=== PATIENT | male | born 1990 | race Two or more races ===

== ENCOUNTER 2024-10-08 20:55 | Emergency (ER) | payer SELFPAY ==
[~2024-10-08] VITALS: Ht 182.9 cm; Wt 114.9 kg
[2024-10-08 22:05] VITALS: BP 154/92; PULSE 67; RESP 20; TEMP 97.8; O2SAT 97
[2024-10-08] MEDS ORDERED: AUG875T PO (22:20)
--- NOTE | 2024-10-08 22:24 | ED.PDOC ---
Eye-HPI HPI Comments This is a 34-year-old male presents to the ED chief complaint dental pain. Patient reports left lower molar/possible wisdom tooth impaction pain. States symptoms started proximally 2 days ago. Has not any appointment with dental as of today. States he has been using meloxicam 15 mg which he took at 6:00 p.m. today and Tylenol 1 g which he also took at 6:00 p.m. today with no relief. Patient denies fevers, chills, throat swelling, difficulty breathing or difficulty swallowing. Chief Complaint: Tooth Pain Time Seen by MD: 21:09 Reviewed Notes: Nurses Notes, Medications, Allergies Home Meds Active Scripts Amoxicillin & Pot Clavulanate (AUGMENTIN TABLET) 875 Mg Tb, 875 MG PO BID for 7 Days, #14 TAB Prov:RUBEN NIETO BOGDAN 10/08/24 Information Source: Patient Mode of Arrival: Ambulatory Past Medical History PAST MEDICAL HISTORY: Denies Surgical History: Denies all surgeries Family History Family History: Reviewed,noncontributory to illness Social History Smoker: Non-Smoker Alcohol: Denies ETOH Use Drugs: Denies Drug Use Constitutional: denies: chills, diaphoresis, fatigue, fever, malaise, sweats, weakness, others EENTM: reports: others (Dental pain); denies: blurred vision, double vision, ear bleeding, ear discharge, ear drainage, ear pain, ear ringing, eye pain, eye redness, hearing loss, mouth pain, mouth swelling, nasal discharge, nose bleeding, nose congestion, nose pain, photophobia, tearing, throat pain, throat swelling, voice changes Respiratory: denies: cough, hemoptysis, orthopnea, SOB at rest, shortness of breath, SOB with excertion, stridor, wheezing, others Cardiovascular: denies: chest pain, dizzy spells, diaphoresis, Dyspnea on exertion, edema, irregular heart beat, left arm pain, lightheadedness, palpitations, PND, syncope, others Gastrointestinal: denies: abdomen distended, abdominal pain, blood streaked bowels, constipated, diarrhea, dysphagia, difficulty swallowing, hematemesis, melena, nausea, poor appetite, poor fluid intake, rectal bleeding, rectal pain, vomiting, others Genitourinary: denies: burning, dysuria, flank pain, frequency, hematuria, incontinence, penile discharge, penile sore, pain, testicle pain, testicle swell ing, urgency, others Neurological: denies: dizziness, fainting, headache, left sided numbness, left sided weakness, numbness, paresthesia, pre-existing deficit, right sided numbness, right sided weakness, seizure, speech problems, tingling, tremors, weakness, others Musculoskeletal: denies: back pain, gout, joint pain, joint swelling, muscle pain, muscle stiffness, neck pain, others Integumetry: denies: bruises, change in color, change in hair/nails, dryness, laceration, lesions, lumps, rash, wounds, others Allergic/Immunocompromised: denies: Difficulty Healing, Frequent Infections, Hives, Itching, others Hematologic/Lymphatic: denies: anemia, blood clots, easy bleeding, easy bruising, swollen glands, others Endocrine: denies: excessive hunger, excessive sweating, excessive thirst, excessive urination, flushing, intolerance to cold, intolerance to heat, unexplained weight gain, unexplained weight loss, others Psychiatric: denies: anxiety, bipolar disorder, depression, hopeless, panic disorder, schizophrenia, sleepless, suicidal, others Physical Exam General Appearance: No Apparent Distress, Normal HEENT: Pharynx Normal, Other (Left lower jaw back molar number 38 noted decay also noted protruding wisdom tooth abscess or swelling along the jaw cervical adenopathy) Neck: Full Range of Motion, Non-Tender Respiratory: Lungs Clear, No Respiratory Distress, Normal Breath Sounds Cardiovascular: No Murmur, Normal Peripheral Pulses, Regular Rate/Rhythm Breast Exam: Deferred Gastrointestinal: Non Tender, No Pulsatile Mass, Soft Genitalia: Deferred Pelvic: Deferred Rectal: Deferred Extremities: Normal capillary refill, Normal inspection, Normal range of motion, Non-tender, No pedal edema Musculoskeletal : Apperance: Normal Neurologic: Alert, 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 Was a procedure done?: No EENT DIFF Eye: N/A Ear: N/A Nose: N/A Mouth: N/A Sore Throat: Ray's Angina, Peritonsillar Abscess X-Ray, Labs, Meds, VS Vital Signs Date Time Temp Pulse Resp B/P (MAP) Pulse Ox O2 Delivery O2 Flow Rate FiO2 10/08/24 22:05 67 20 97 Room Air 10/08/24 22:05 97.8 67 20 154/92 (112) 97 97.8 10/08/24 21:13 97.8 67 20 154/92 (112) 97 97.8 Current Medications Medications (Trade) Dose Ordered Sig/Marisa Route Start Time Stop Time Status Last Admin Oxycodone HCl 10 mg Q4HP ONCE PO 10/09/24 02:00 10/09/24 02:01 10/08/24 22:38 Benzocaine (Hurricaine [place]) 1 spr ONCE ONCE MT 10/08/24 22:30 10/08/24 22:31 DC 10/08/24 22:38 X-Ray, Labs, Meds, VS Comment Patient given oxycodone 10 mg, took g of Tylenol and meloxicam. Hurricaine spray applied patient reports relief in symptoms requesting discharge at this time. Script Augmentin twice daily x7 days. Advised to call and make appointment with dental for resolution. Take Medications as prescribed side effects discussed. ER return precautions given patient indicates understanding and agrees with discharge plan of care. Time of 1ST Reevaluation: 22:45 Reevaluation 1ST: Improved Patient Education/Counseling: Diagnosis, Treatment, Prognosis, Need For Follow Up Family Education/Counseling: Diagnosis, Treatment, Prognosis, Need For Follow Up Departure 1 Departure Time of Disposition: 22:45 Impression: Primary Impression: Pain, dental Disposition: HOME / SELF CARE / HOMELESS Condition: Stable e-Prescriptions Amoxicillin & Pot Clavulanate (AUGMENTIN TABLET) 875 Mg Tb 875 MG PO BID for 7 Days, #14 TAB Prov: RUBEN NIETO 10/08/24 Discharged With: Significant Other Critical Care Note Critical Care Time?: No Stability Stability form required: RUBEN De La O Oct 08, 2024 22:23
[2024-10-08] MEDS: BENZOCAINE (DENTAL) 20 % SPRAY 60ML MT ONE (22:38)
[2024-10-08] MEDS: oxyCODONE HCL 5MG TAB PO ONE (22:38)
== END 2024-10-08 23:01 | disposition home or self-care (01) ==
LOC: ER 20:55
DX: K08.89 Other specified disorders of teeth and supporting structures (principal)

== ENCOUNTER 2024-10-20 20:17 | Emergency (ER) | payer SELFPAY ==
[~2024-10-20] VITALS: Ht 182.9 cm; Wt 113.9 kg
--- NOTE | 2024-10-20 21:35 | ED.PDOC ---
History of present illness HPI Comments HPI: 34 year old male presents to the ED with chief complaint of hyperglycemia. Patient reports that he recently checked his BG at home, noting it to be in the 400s. Patient relays that he has been experiencing abdominal burning with associated frequent urination, nausea, and blurred vision since this morning. Patient relays that he had a previous episode of DKA back in 2019. Patient states he is only on Metformin at this time, compliant with it, but it has not helped with his blood sugar. Patient notes recent bad diet and stress. Patient denies any vomiting, diarrhea, dysuria, excess thirst, chest pain, SOB, or dizziness. History of alcohol abuse daily Initial Vitals: Temp: BP: 139/94 HR: 91 RR: 20 O2 Sat: 98% Blood Glucose: 408 in triage Medical History: DM Surgical History: Rt meniscus surgery, Appendectomy Social History: Denies any smoking, heavy ETOH use, or Marijuana Medications: Metformin Allergies: NKDA HPI: Poor Historian. REVIEW OF SYSTEMS: CONSTITUTIONAL: Denies acute: fever, diaphoresis, chills, generalized weakness. HEAD: Denies acute: headache, photophobia Eyes: Denies acute: Double vision, vision loss, eye pain, eye discharge. EARS: Denies acute: tinnitus, hearing loss, ear discharge, ear pain, THROAT: Denies acute: sore throat, swelling, difficulty swallowing , pain with swallowing, change in voice. NECK: Denies acute: neck pain, neck swelling, stiff neck. HEART: Denies acute : chest pain, palpitations, LUNGS: Denies acute: SOB, wheezing, cough, hemoptysis ABDOMEN: Denies acute: abdominal pain, Nausea, Vomiting, diarrhea, melena , hematemesis, hematochezia SKIN: Denies acute: rash, redness, lesions, itchiness. EXTREMITIES: Denies acute: calf pain, numbness, tingling, weakness, denies pain in extremity. Denies acute: Low back pain. Neuro: Denies acute: focal neurological deficit, motor or sensory focal neurological deficit, tremors, seizure like activity, confusion, dizziness, change in mental status, loss of bowel or bladder function, cauda equina like symptoms. : Denies acute: dysuria, hematuria, flank pain, increase in urinary frequency. PSYCH: Denies acute: hallucination, suicidal ideation, homicidal ideation. PHYSICAL EXAM: General: ---mild-----acute distress, awake and alert. Head: normocephalic, atraumatic. Neck: supple, trachea is midline, no swelling. Throat: Normal phonation. Eyes:, no erythema, no purulent discharge, no proptosis, no icterus. Heart: regular rate, regular rhythm, no significant murmur appreciated. Lungs: no apparent respiratory distress, Able to speak in full sentences. No wheezing, no rhonchi, no crackles. No stridors Clear to auscultation bilaterally. Abdomen: non tender to palpation, non distended, soft, no guarding, no rebound, + bowel sounds. Neuro: Awake, Alert, oriented to name, self, situation, follows commands GCS=15. Speech is normal. Skin: no petechia, no purpura, no cyanosis, non-pale, not jaundice. Lower extremities: --no - Pitting edema no deformity, no focal swelling, no calf TTP. Makes eye contact. moves all four extremities. Face: no apparent facial droop. Ambulating in the ED independently. ED COURSE: Time Seen by MD: 21:02 History of present illness: Nurses Notes, Medications, Allergies Allergies: Coded Allergies: NO KNOWN ALLERGIES (Unverified , 10/20/24) Home Meds Active Scripts Metformin Hydrochloride (Metformin Hcl) 500 Mg Tab, 1 TAB PO DAILY for 5 Days, #5 TAB 0 Refills Prov:HOWIE MERRILL DO 10/21/24 Discontinued Scripts Amoxicillin & Pot Clavulanate (AUGMENTIN TABLET) 875 Mg Tb, 875 MG PO BID for 7 Days, #14 TAB Prov:RUBEN NIETO 10/08/24 Information Source: Patient Mode of Arrival: Ambulatory Was a procedure done? Was a procedure done?: No Differential Diagnosis (DM) Differential Diagnosis: Dehydration, Diabetic Coma, DKA, Electrolyte Abnormality, Hyperglycemia, Hyperosmolar State, UTI X-Ray, Labs, Meds, VS Vital Signs Date Time Temp Pulse Resp B/P (MAP) Pulse Ox O2 Delivery O2 Flow Rate FiO2 10/21/24 00:50 98.8 80 13 126/86 (99) 95 98.8 10/21/24 00:50 80 13 95 Room Air* 0 21 10/20/24 21:15 98.9 91 20 139/94 (109) 98 98.9 Lab Test 10/21/24 00:14 10/20/24 22:19 10/20/24 22:13 10/20/24 21:19 Range/Units POC Glucose 340 H 70-106 mg/dl Troponin I High Sensitivity 8 9 </=54 ng/L Blood Gas Specimen Type Arterial Blood Gas Sample Site Right radial Blood Gas Patient Temperature 37.0 Arterial Blood Date Drawn [id number] Arterial Blood pH 7.459 H 7.350-7.450 Arterial Blood Partial Pressure CO2 31.5 L 35.0-48.0 mmHg Arterial Blood Partial Pressure O2 82.3 L 83.0-108.0 mmHg Arterial Blood HCO3 21.8 21.0-28.0 mmol/L Arterial Blood Oxygen Saturation 96.1 94.0-98.0 % Arterial Blood Base Excess -0.9 -2.0-3.0 mmol/L Arterial Blood Oxyhemoglobin 95.1 94.0-98.0 % Arterial Blood Carboxyhemoglobin 0.6 0.5-1.5 % Arterial Blood Methemoglobin 0.4 0.0-1.5 % Darius Test Yes Blood Gas Total Hemoglobin 15.60 13.5-17.5 g/dL Blood Gas Modality Room air FiO2 % 21.0 Specimen Drawn By Fito rodrigez White Blood Count 10.2 4.4-10.8 10^3/uL Red Blood Count 5.22 4.5-5.90 10^6/uL Hemoglobin 15.8 13.5-17.5 g/dL Hematocrit 46.3 41.0-53.0 % Mean Corpuscular Volume 88.7 80.0-100.0 fL Mean Corpuscular Hemoglobin 30.3 28.0-32.0 pg Mean Corpuscular Hemoglobin Concent 34.1 32.0-36.0 g/dL Red Cell Distribution Width 13.0 11.8-14.3 % Platelet Count 165 140-450 10^3/uL Mean Platelet Volume 10.9 H 6.9-10.8 fL Neutrophils (%) (Auto) 57.0 37.0-80.0 % Lymphocytes (%) (Auto) 35.2 10.0-50.0 % Monocytes (%) (Auto) 5.0 0.0-12.0 % Eosinophils (%) (Auto) 1.7 0.0-7.0 % Basophils (%) (Auto) 1.1 0.0-2.0 % Neutrophils # (Auto) 5.8 1.6-8.6 10 ^3/uL Lymphocytes # (Auto) 3.6 0.4-5.4 10 ^3/uL Monocytes # (Auto) 0.5 0-1.3 10 ^3/uL Eosinophils # (Auto) 0.2 0-0.8 10 ^3/uL Basophils # (Auto) 0.1 0-0.2 10 ^3/uL Nucleated Red Blood Cells 0.2 % Sodium Level 130 L 136-145 mmol/L Potassium Level 3.9 3.5-5.1 mmol/L Chloride Level 94 L 98-107 mmol/L Carbon Dioxide Level 26 20-31 mmol/L Anion Gap 10 5-15 Blood Urea Nitrogen 15 9-23 mg/dL Creatinine 0.97 0.700-1.30 mg/dL Glomerular Filtration Rate Calc 105 >90 mL/min BUN/Creatinine Ratio 15.5 10.0-20.0 Serum Glucose 424 *H 74-106 mg/dL Lactic Acid Level 1.5 0.4-2.0 mmol/L Calcium Level 10.3 8.7-10.4 mg/dL Magnesium Level 2.0 1.6-2.6 mg/dL Total Bilirubin 0.7 0.2-1.0 mg/dL Aspartate Amino Transferase (AST) 74 H 13-40 U/L Alanine Aminotransferase (ALT) 208 H 7-40 U/L Alkaline Phosphatase 152 H 46-116 U/L B-Type Natriuretic Peptide 0.39 0-100 pg/mL Total Protein 8.3 H 5.7-8.2 g/dL Albumin 5.0 H 3.2-4.8 g/dL Beta-Hydroxybutyric Acid 0.326 < 0.4 mmol/L Test 10/20/24 21:08 10/20/24 21:00 Range/Units POC Glucose 408 *H 70-106 mg/dl Urine Color Light-yellow Yellow Urine Clarity Clear Clear Urine pH 5.5 5.0-9.0 Urine Specific [place] 1.036 H 1.001-1.035 Urine Protein 1+ H Negative Urine Ketones Negative Negative Urine Blood Negative Negative /uL Urine Nitrite Negative Negative Urine Bilirubin Negative Negative Urine Urobilinogen Normal Negative mg/dL Urine Leukocyte Esterase Negative Negative /uL Urine RBC 1 0 - 3 /hpf Urine Microscopic WBC 2 0-3 /HPF Urine Squamous Epithelial Cells Few <5 /hpf Urine Bacteria None seen None Seen /hpf Urine Glucose 4+ H Normal mg/dL [place] [id number] Ph: [phone] DIAGNOSTIC IMAGING Diagnostic Imaging Report : [id number] Signed PATIENT: ERIC VELAZCO ACCT: [id number] UNIT: [id number] : 1990 LOC: ER ROOM / BED: / AGE / SEX: 34 / M ADM STATUS: REG ER SERVICE 04 ORDERING PHYSICIAN: HOWIE MERRILL DO PROCEDURE(s): CXRP - CHEST PORTABLE REASON: sob ORDER NUMBER(s): [id number], ACCESSION NUMBER(s): [id number] CHEST RADIOGRAPH Indication: sob Technique: Single frontal view of the chest was obtained COMPARISON: None FINDINGS: Lines and Tubes: None Lungs: Clear Pleura: No effusion. No pneumothorax. Cardiomediastinal contours: Unremarkable Bones: Unremarkable IMPRESSION: No abnormality. ATED BY: MARVIN OLSEN MD DICTATED DATE/TIME: 10/20/242145 SIGNED BY: MARVIN OLSEN MD SIGNED DATE/TIME: 10/20/242145 CC: Time of 1ST Reevaluation: 22:02 Reevaluation 1ST: Unchanged Time of 2ND Reevaluation: 01:23 (Patient now discloses that he has been without his metformin for approximately six months. he takes 500 mg twice a day. Patient requested refill because he recently moved to this area. I explained to the patient given his elevated LFTs, metformin 90 not be the best drug for him on the long run until he 1st treats is liver condition and follows up with gastroenterology. I told him I will give him a very small doses for few days.) Reevaluation 2ND: Improved Patient Education/Counseling: Diagnosis, Treatment Family Education/Counseling: No Family Present Comments Patient presented with the above HPI.----hyperglycemia--workup was initiated. patient was found with the above mentioned diagnosis. the following medications were ordered: please refer to order lists of meds and tests obtained by myself Dr. Merrill. Patient ED course and VS have been stabilized. Patient has been reassessed in the ED and remained in a stable condition. Pertinent incidental findings were discussed with the patient and/or family. Patient/family voices understanding and is agreeable with plan. Patient has been observed in the ED adequate length of time to insure improvement/stability. Escalation of care considered: Consideration of escalation to observation or admission Patient was DISCHARGED home in a stable condition. All the reports of any imaging studies that were ordered by myself were reviewed by myself. Departure 1 Departure Time of Disposition: 23:07 Impression: Primary Impression: Hyperglycemia due to diabetes mellitus Additional Impressions: Elevated LFTs Alcohol abuse Disposition: HOME / SELF CARE / HOMELESS Condition: Stable Additional Instructions: Additional discharge instructions: You MUST follow-up with your primary care/family doctor in 1 to 2 days. If you are unable to see your primary care/family doctor, please return to our emergency room for re-assessment and re-evaluation in 1 to 2 days. Return to the emergency room here in our facility or to the nearest ER [facility] if your symptoms change or worsen. CONSULTATIONS: you MUST Follow-up for consultation as soon as possible with: -gastroenterology regarding your elevated liver enzymes. Please call for appointment. Follow up with the endocrinology in 1-2 days. Please call for appointment. You MUST call the consultants office yourself to make an appointment. You may need to arrange that through your insurance and/or your primary/family doctor. If you are unable to see the foreign legal consultant in 1 to 2 days, you must return to our emergency room (or any other ER of your choice) for re-assessment and re-seth luation. Adequate fluid hydration. Seek help regarding your alcohol dependency. Monitoring blood sugar closely at least 3 times a day. Follow a diabetic diet. e-Prescriptions Metformin Hydrochloride (Metformin Hcl) 500 Mg Tab 1 TAB PO DAILY for 5 Days, #5 TAB 0 Refills Prov: HOWIE MERRILL DO 10/21/24 Discharged With: Self Critical Care Note Critical Care Time?: No I personally scribed for HOWIE MERRILL DO ([email or web address]) on 10/20/24 at 21:35. Electronically submitted by Rahul Hancock ([email or web address]). I personally scribed for HOWIE MERRILL DO ([email or web address]) on 10/21/24 at 15:51. Electronically submitted by Johnathon Prince ([email or web address]). HOWIE MERRILL DO Oct 20, 2024 21:35
[2024-10-20 21:36] LABS: Urine Bacteria None Seen /hpf (None Seen)
[2024-10-20 21:36] LABS: Basophils # (auto) 0.1 10 ^3/uL (0-0.2); Basophils % (auto) 1.1 % (0.0-2.0); Eosinophils # (auto) 0.2 10 ^3/uL (0-0.8); Eosinophils % (auto) 1.7 % (0.0-7.0); Hematocrit 46.3 % (41.0-53.0); Hemoglobin 15.8 g/dL (13.5-17.5); Lymphocytes # (auto) 3.6 10 ^3/uL (0.4-5.4); Lymphocytes % (auto) 35.2 % (10.0-50.0); Mean Corpuscular Hemoglobin 30.3 pg (28.0-32.0); Mean Corpuscular Hgb Conc. 34.1 g/dL (32.0-36.0); Mean Corpuscular Volume 88.7 fL (80.0-100.0); Monocytes # (auto) 0.5 10 ^3/uL (0-1.3); Neutrophils # (auto) 5.8 10 ^3/uL (1.6-8.6); Nucleated Red Blood Cells % 0.2 %; Platelet Count (auto) 165 10^3/uL (140-450); Red Blood Cells 5.22 10^6/uL (4.5-5.90); White Blood Cell 10.2 10^3/uL (4.4-10.8)
[2024-10-20 21:48] LABS: Anion Gap 10 (5-15); BUN/Creatinine Ratio 15.5 (10.0-20.0); Bilirubin, Total 0.7 mg/dL (0.2-1.0); Blood Urea Nitrogen 15 mg/dL (9-23); Calcium 10.3 mg/dL (8.7-10.4); Carbon Dioxide 26 mmol/L (20-31); Potassium 3.9 mmol/L (3.5-5.1)
[2024-10-20] MEDS: SODIUM CHLORIDE 0.9% 1,000 ML IV ONE ×3 (21:48→23:56)
--- NOTE | 2024-10-20 21:48 | DVH ---
CHEST RADIOGRAPH Indication: sob Technique: Single frontal view of the chest was obtained COMPARISON: None FINDINGS: Lines and Tubes: None Lungs: Clear Pleura: No effusion. No pneumothorax. Cardiomediastinal contours: Unremarkable Bones: Unremarkable IMPRESSION: No abnormality.
[2024-10-20] MEDS: InsuLIN REG 1unit/0.01ml Soln (100units/ml) IV ONE (21:49)
[2024-10-20 21:58] LABS: Alanine Aminotransferase 208 U/L (7-40); Alkaline Phosphatase 152 U/L (46-116); Aspartate Aminotransferase 74 U/L (13-40); Chloride 94 mmol/L (98-107); Sodium 130 mmol/L (136-145); Total Protein 8.3 g/dL (5.7-8.2)
[2024-10-20 22:00] LABS: Glucose 424 mg/dL (74-106)
[2024-10-20 22:19] LABS: Urine Blood Negative /uL (Negative); Urine Clarity Clear (Clear); Urine Color Light-Yellow (Yellow); Urine Protein, UAD 1+ (Negative); Urine Specific Gravity 1.036 (1.001-1.035); Urine Squamous Epithelial Cell FEW /hpf (<5); Urine Urobilinogen Normal (Negative); Urine WBC 2 /HPF (0-3); Urine pH 5.5 (5.0-9.0)
[2024-10-20 22:23] LABS: Base Excess -0.9 mmol/L (-2.0-3.0)
[2024-10-21 00:50] VITALS: BP 126/86; PULSE 80; RESP 13; TEMP 98.8; O2SAT 95
[2024-10-21] MEDS ORDERED: METF-370 PO (01:22)
== END 2024-10-21 01:00 | disposition home or self-care (01) ==
LOC: ER 20:17
DX: E11.65 Type 2 diabetes mellitus with hyperglycemia (principal); R79.89 Other specified abnormal findings of blood chemistry; F10.10 Alcohol abuse, uncomplicated; R35.0 Frequency of micturition; R06.02 Shortness of breath; Z79.84 Long term (current) use of oral hypoglycemic drugs; Z90.49 Acquired absence of other specified parts of digestive tract
CPT/HCPCS: 36415; 36600; 71045; 80053; 81001; 82010; 82805; 82947; 83605; 83735; 83880; 84484; 85025; 96361; 96374; 99284; J1815; J7030; 82962